=== PATIENT | female | born 1970 | race Caucasian/White ===

== ENCOUNTER 2020-06-24 10:42 | Inpatient (IN) ==
[2020-06-24] MEDS ORDERED: NOREPINEPHRINE 4 MG/4 ML VIAL IV ONE (13:09)
[2020-06-24] MEDS ORDERED: ONDANSETRON 4 MG/2 ML VIAL IV PRN (13:11)
[2020-06-24] MEDS ORDERED: NOREPINEPHRINE 8 MG in SODIUM CHLORIDE 0.9% 242 ML IV SCH (13:30)
[2020-06-24 13:43] LABS: Basophils % 0.2 % (0.0-0.8); Hematocrit 33.7 VOL% (35.7-47.0); Hemoglobin 10.8 GM/DL (12.0-16.0); Immature Granulocytes % 0.5 %; Immature Granulocytes Absolute 0.07 #; Lymphocytes % 7.8 % (21.3-54.2); Mean Corpuscular Volume 79.3 FL (87-102); Mean Platelet Volume 10.9 FL (9.6-12.0); Monocytes % 3.1 % (1.7-12.7); Neutrophils % 88.4 % (38.7-73.9); Platelet Count 153 T/CUMM (130-400); Red Blood Count 4.25 MC/CUMM (3.8-5.5); Red Cell Distribution Width 19.6 % (9.3-17.3); White Blood Count 13.3 T/CUMM (4-12)
[2020-06-24 13:54] LABS: PT Patient Result 10.9 SECS (9.8-11.9)
[2020-06-24 14:03] LABS: Alanine Aminotransferase 32 U/L (13-56); Albumin 2.2 G/DL (3.4-5.0); Alkaline Phosphatase 72 U/L (45-117); Aspartate Amino Transferase 48 U/L (0-37); Bilirubin,Total < 0.39 MG/DL (0.2-1.0); Blood Urea Nitrogen 14 MG/DL (7-18); Carbon Dioxide 24 MMOL/L (21-32); Estimated Glom Filtration Rate 93 ML/MIN; Glucose 92 MG/DL (74-106); Osmolality,Calculated 286.8 MOS/KG (273-304); Potassium 2.7 MMOL/L (3.5-5.1); Sodium 144 MMOL/L (136-145); Total Protein 5.4 G/DL (6.4-8.3)
[2020-06-24 14:04] LABS: Lactic Acid 0.9 MMOL/L (0.4-2.0)
[2020-06-24] MEDS ORDERED: POTASSIUM CHLORIDE RIDER 10 MEQ in PREMIX 1 EACH IV PRN (14:10)
[2020-06-24] MEDS ORDERED: POTASSIUM CHLORIDE 20 MEQ TABLET PO ONE (14:19)
[2020-06-24] MEDS: LEVOFLOXACIN INJ 750 MG in PREMIX 1 EACH IV SCH (15:05)
[2020-06-24] MEDS: metroNIDAZOLE INJ 500 MG in PREMIX 1 EACH IV SCH ×2 (15:05→20:29)
[2020-06-24] MEDS: LACTATED RINGERS 1,000 ML IV SCH ×2 (15:06→17:32)
[2020-06-24] MEDS: PANTOPRAZOLE 40 MG VIAL IV SCH ×2 (15:07→20:24)
[2020-06-24] MEDS: FOLIC ACID 1 MG TABLET PO SCH (16:06)
[2020-06-24] MEDS: MULTIVITAMIN (BEROCCA) TABLET PO SCH (16:06)
[2020-06-24] MEDS: THIAMINE 100 MG TABLET PO SCH (16:07)
[2020-06-24 17:05] LABS: ABG Base Excess -0.1 MMOL/L (-2.5-2.5); ABG HCO3 24.3 MMOL/L (20-26); ABG Oxygen Saturation 95.6 % (95-100); ABG PCO2 32.7 MM HG (35-48); ABG PH 7.458 (7.35-7.45); ABG PO2 75.8 MM HG (80-95); ABG TCO2 20.8 MMOL/L (23-27)
[2020-06-24] MEDS ORDERED: POTASSIUM CHLORIDE INJ 50 MEQ in SODIUM CHLORIDE 0.9% 500 ML IV ONE (18:00)
[2020-06-24] MEDS: POTASSIUM CHLORIDE 20 MEQ TABLET PO SCH (20:24)
[2020-06-25] MEDS ORDERED: ALPRAZolam 0.5 MG TABLET PO ONE (02:24)
[2020-06-25] MEDS ORDERED: FUROSEMIDE 40 MG/4 ML VIAL IV ONE (04:12)
[2020-06-25] MEDS: chlordiazePOXIDE 10 MG CAPSULE PO PRN ×2 (04:27→23:02)
[2020-06-25] MEDS: LACTATED RINGERS 1,000 ML IV SCH (04:36)
[2020-06-25] MEDS: metroNIDAZOLE INJ 500 MG in PREMIX 1 EACH IV SCH ×3 (04:58→21:14)
[2020-06-25 07:41] LABS: Basophils % 0.2 % (0.0-0.8); Eosinophils % 0.1 % (0.00-10.9); Hematocrit 37.8 VOL% (35.7-47.0); Hemoglobin 11.3 GM/DL (12.0-16.0); Immature Granulocytes % 0.7 %; Immature Granulocytes Absolute 0.09 #; Lymphocytes # 0.8 10*3/uL (1.4-4.0); Lymphocytes % 6.1 % (21.3-54.2); Mean Corpuscular HGB Conc 29.9 GM/DL (32-36); Mean Corpuscular Volume 82.5 FL (87-102); Mean Platelet Volume 11.5 FL (9.6-12.0); Monocytes % 3.5 % (1.7-12.7); Neutrophils % 89.4 % (38.7-73.9); Platelet Count 151 T/CUMM (130-400); Red Blood Count 4.58 MC/CUMM (3.8-5.5); Red Cell Distribution Width 20.1 % (9.3-17.3); White Blood Count 13.4 T/CUMM (4-12)
[2020-06-25 08:05] LABS: Calcium 8.2 MG/DL (8.5-10.1); Potassium 2.8 MMOL/L (3.5-5.1)
[2020-06-25 08:10] LABS: Anisocytosis 1+; Macrocytosis Slight; Platelet Estimate Normal
[2020-06-25] MEDS: THIAMINE 100 MG TABLET PO SCH (09:07)
[2020-06-25] MEDS: MULTIVITAMIN (BEROCCA) TABLET PO SCH (09:07)
[2020-06-25] MEDS: POTASSIUM CHLORIDE 20 MEQ TABLET PO SCH ×2 (09:07→20:58)
[2020-06-25] MEDS: FOLIC ACID 1 MG TABLET PO SCH (09:07)
[2020-06-25] MEDS: PANTOPRAZOLE 40 MG VIAL IV SCH ×2 (10:49→21:11)
[2020-06-25] MEDS: POTASSIUM CHLORIDE 20 MEQ TABLET PO PRN ×2 (12:21→14:19)
[2020-06-25] MEDS: LEVOFLOXACIN INJ 750 MG in PREMIX 1 EACH IV SCH (15:26)
[2020-06-26] MEDS ORDERED: NICOTINE 21 MG/24 HR PATCH TRANSDERM SCH (00:10)
[2020-06-26] MEDS: metroNIDAZOLE INJ 500 MG in PREMIX 1 EACH IV SCH ×3 (05:44→20:54)
[2020-06-26 06:59] LABS: Basophils % 0.7 % (0.0-0.8); Eosinophils # 0.1 10*3/uL (0.0-0.87); Eosinophils % 2.1 % (0.00-10.9); Hematocrit 36.3 VOL% (35.7-47.0); Hemoglobin 11.4 GM/DL (12.0-16.0); Immature Granulocytes % 0.4 %; Immature Granulocytes Absolute 0.02 #; Lymphocytes # 2.1 10*3/uL (1.4-4.0); Lymphocytes % 37.4 % (21.3-54.2); Mean Corpuscular HGB Conc 31.4 GM/DL (32-36); Mean Corpuscular Volume 79.4 FL (87-102); Mean Platelet Volume 12.2 FL (9.6-12.0); Monocytes % 9.3 % (1.7-12.7); Neutrophils % 50.1 % (38.7-73.9); Platelet Count 126 T/CUMM (130-400); Red Blood Count 4.57 MC/CUMM (3.8-5.5); Red Cell Distribution Width 20.4 % (9.3-17.3); White Blood Count 5.7 T/CUMM (4-12)
[2020-06-26 07:17] LABS: Hypochromasia 1+; Microcytosis 1+; Platelet Estimate Normal
[2020-06-26 07:29] LABS: Albumin 2.4 G/DL (3.4-5.0); Bilirubin,Total 0.9 MG/DL (0.2-1.0); Calcium 8.3 MG/DL (8.5-10.1); Osmolality,Calculated 277.3 MOS/KG (273-304); Risk Ratio 1.55; Total Protein 5.7 G/DL (6.4-8.3); VLDL CHOLESTEROL 12.6 MG/DL
[2020-06-26 08:25] LABS: Troponin I 0.018 NG/ML (0.00-0.045)
[2020-06-26] MEDS ORDERED: ASPIRIN EC 81 MG TABLET PO SCH (09:00)
[2020-06-26] MEDS: FOLIC ACID 1 MG TABLET PO SCH (09:56)
[2020-06-26] MEDS: THIAMINE 100 MG TABLET PO SCH (09:57)
[2020-06-26] MEDS: POTASSIUM CHLORIDE 20 MEQ TABLET PO SCH ×3 (09:57→20:56)
[2020-06-26] MEDS: PANTOPRAZOLE 40 MG VIAL IV SCH ×2 (09:59→20:55)
[2020-06-26] MEDS: NICOTINE 21 MG/24 HR PATCH TRANSDERM SCH (10:08)
[2020-06-26] MEDS: MULTIVITAMIN (BEROCCA) TABLET PO SCH (10:09)
[2020-06-26 10:28] LABS: Troponin I < 0.015 NG/ML (0.00-0.045)
[2020-06-26] MEDS: chlordiazePOXIDE 10 MG CAPSULE PO PRN ×2 (10:58→20:56)
[2020-06-26] MEDS: LEVOFLOXACIN INJ 750 MG in PREMIX 1 EACH IV SCH (10:59)
[2020-06-26] MEDS: ASPIRIN EC 81 MG TABLET PO SCH (13:53)
[2020-06-26] MEDS: METOPROLOL SUCCINATE XL 25 MG TABLET PO SCH (13:53)
[2020-06-26] MEDS ORDERED: ATORVASTATIN 80 MG TABLET PO SCH (21:00)
[2020-06-27] MEDS: metroNIDAZOLE INJ 500 MG in PREMIX 1 EACH IV SCH (06:03)
[2020-06-27 07:35] LABS: Basophils # 0.1 10*3/uL (0.0-0.2); Basophils % 0.7 % (0.0-0.8); Eosinophils # 0.3 10*3/uL (0.0-0.87); Hematocrit 38.8 VOL% (35.7-47.0); Hemoglobin 11.7 GM/DL (12.0-16.0); Immature Granulocytes % 0.6 %; Immature Granulocytes Absolute 0.04 #; Lymphocytes # 2.3 10*3/uL (1.4-4.0); Lymphocytes % 33.8 % (21.3-54.2); Mean Corpuscular HGB Conc 30.2 GM/DL (32-36); Mean Platelet Volume 11.9 FL (9.6-12.0); Monocytes % 9.3 % (1.7-12.7); Neutrophils % 51.6 % (38.7-73.9); Platelet Count 151 T/CUMM (130-400); Red Blood Count 4.73 MC/CUMM (3.8-5.5); White Blood Count 6.8 T/CUMM (4-12)
[2020-06-27 07:37] LABS: Calcium 8.8 MG/DL (8.5-10.1); Osmolality,Calculated 277.5 MOS/KG (273-304); Potassium 4.3 MMOL/L (3.5-5.1)
[2020-06-27 07:38] LABS: Platelet Estimate Adequate
[2020-06-27] MEDS ORDERED: lisinopriL 10 MG TABLET PO SCH (09:00)
[2020-06-27] MEDS: PANTOPRAZOLE 40 MG VIAL IV SCH ×2 (09:54→10:05)
[2020-06-27] MEDS: ASPIRIN EC 81 MG TABLET PO SCH (09:54)
[2020-06-27] MEDS: FOLIC ACID 1 MG TABLET PO SCH (09:55)
[2020-06-27] MEDS: THIAMINE 100 MG TABLET PO SCH (09:55)
[2020-06-27] MEDS: POTASSIUM CHLORIDE 20 MEQ TABLET PO SCH (09:55)
[2020-06-27] MEDS: METOPROLOL SUCCINATE XL 25 MG TABLET PO SCH (09:55)
[2020-06-27] MEDS: MULTIVITAMIN (BEROCCA) TABLET PO SCH (09:55)
[2020-06-27] MEDS: NICOTINE 21 MG/24 HR PATCH TRANSDERM SCH (09:56)
[2020-06-27] MEDS: LEVOFLOXACIN INJ 750 MG in PREMIX 1 EACH IV SCH ×2 (09:56→10:05)
[2020-06-27 11:48] VITALS: BP 129/81
== END 2020-06-27 13:19 | disposition home or self-care (01) | DRG 391 ==
LOC: N.ICU 13:07 → SUATTDRO 13:07 → N.5E 16:34
PROVIDERS: ADMIT Family Medicine; ATTEND Internal Medicine Geriatric Medicine